=== PATIENT | male | born 1955 | race African-American/Black ===

== ENCOUNTER 2019-11-25 08:01 | Inpatient (IN) | payer MEDICAID, OTHER ==
[~2019-11-25] VITALS: Ht 154.5 cm; Wt 65.5 kg
[2019-11-25] MEDS ORDERED: SODIUM CHLORIDE 0.9% 1,000 ML IV ONE (08:10)
[2019-11-25] MEDS ORDERED: cloNIDine HCL 0.1 MG TAB PO ONE (08:30)
[2019-11-25 09:01] LABS: Basophils # (auto) 0 10 ^3/uL (0-0.2); Basophils % (auto) 0.2 % (0.0-2.0); Eosinophils # (auto) 0.3 10 ^3/uL (0-0.8); Eosinophils % (auto) 3.2 % (0.0-7.0); Hematocrit 38.2 % (41.0-53.0); Hemoglobin 12.4 g/dL (13.5-17.5); Lymphocytes # (auto) 1.1 10 ^3/uL (0.4-5.4); Lymphocytes % (auto) 12.4 % (10.0-50.0); Mean Corpuscular Hemoglobin 28.8 pg (28.0-32.0); Mean Corpuscular Hgb Conc. 32.3 g/dL (32.0-36.0); Mean Corpuscular Volume 89.2 fL (80.0-100.0); Monocytes # (auto) 1.4 10 ^3/uL (0-1.3); Neutrophils # (auto) 5.8 10 ^3/uL (1.6-8.6); Neutrophils % (auto) 68.2 % (37.0-80.0); Nucleated Red Blood Cells % 0.1 %; Platelet Count (auto) 269 10^3/uL (140-450); Red Blood Cells 4.28 10^6/uL (4.5-5.90); Red Cell Distribution Width 16.5 % (11.8-14.3); White Blood Cell 8.6 10^3/uL (4.4-10.8)
[2019-11-25 09:16] LABS: INR 1.02 (0.9-1.15)
[2019-11-25 09:23] LABS: Albumin 2.6 g/dL (3.4-5.0); Anion Gap 9 (5-15); Blood Urea Nitrogen 72 mg/dL (7-18); Calcium 8.7 mg/dL (8.5-10.1); Carbon Dioxide 33 mmol/L (21-32); Chloride 98 mmol/L (98-107); Glucose 140 mg/dL (74-106); Potassium 3.3 mmol/L (3.5-5.1); Sodium 140 mmol/L (136-145)
[2019-11-25 09:30] LABS: Alanine Aminotransferase 12 U/L (16-61); Alkaline Phosphatase 72 U/L (45-117); Aspartate Aminotransferase 17 U/L (15-37); BUN/Creatinine Ratio 53.7; Bilirubin, Total 0.8 mg/dL (0.2-1.0); GFR African American 68 mL/min; GFR Non-African American 57 mL/min; Total Protein 6.5 g/dL (6.4-8.2)
[2019-11-25] MEDS ORDERED: IPRATROPIUM BROM 0.5 MG/2.5ML INH SOL NEB PRN (11:15)
[2019-11-25] MEDS ORDERED: DEXTROSE (50%) 50ML SYRG IV PRN (11:15)
[2019-11-25] MEDS ORDERED: ACETAMINOPHEN 500 MG TAB PO PRN (11:15)
[2019-11-25] MEDS ORDERED: ALBUTEROL SULF 2.5 MG/0.5ML(0.5%) NEB SOLN NEB PRN (11:15)
[2019-11-25] MEDS ORDERED: MORPHINE SULF INJ 2 MG/ML SYRINGE 1ML IV ONE (11:15)
[2019-11-25] MEDS ORDERED: SOD CHL 0.9%/ KCL 20MEQ 1,000 ML IV ONE (11:15)
[2019-11-25] MEDS ORDERED: MORPHINE SULF INJ 2 MG/ML SYRINGE 1ML IV PRN (11:15)
[2019-11-25] MEDS ORDERED: NITROGLYCERIN 0.4 MG SL TAB SL PRN (11:15)
[2019-11-25 11:29] LABS: Urine Bacteria NONE SEEN /hpf (None Seen); Urine Blood Negative /uL (Negative); Urine Specific Gravity 1.014 (1.001-1.035); Urine Sperm PRESENT /hpf (None Seen); Urine WBC 1 /hpf (0 - 3)
[2019-11-25] MEDS ORDERED: LACTULOSE 20Gm/30ML SOLN PO PRN (11:30)
[2019-11-25] MEDS ORDERED: DOCUSATE SOD 100 MG CAP PO ONE (11:45)
[2019-11-25] MEDS ORDERED: CARVEDILOL 3.125 MG TAB PO ONE (11:45)
[2019-11-25] MEDS ORDERED: PANTOPRAZOLE 40 MG TAB PO ONE (11:45)
[2019-11-25 11:49] LABS: Cholesterol 98 mg/dL (< 200)
[2019-11-25 11:52] LABS: HDL Cholesterol 34 mg/dL (40-59); LDL Cholesterol 48 mg/dL (< 100); Triglycerides 129 mg/dL (< 150)
[2019-11-25] MEDS: InsuLIN REG 1unit/0.01ml Soln (100units/ml) SC SCH ×3 (11:52→21:58)
[2019-11-25] MEDS: ACCU-CHEK COMFORT CURVE STRIP VI SCH ×3 (11:52→21:51)
--- NOTE | 2019-11-25 12:28 | NUR ---
RECEIVED PATIENT TO THE FLOOR AWAKE ALERT AND ORIENTED. TWO SIDE RAILS UP AND CALL LIGHT IN REACH. NO SIGNS AND SYMPTOMS OF DISTRESS NOTED.
[2019-11-25 12:30] VITALS: BP 127/71
[2019-11-25] MEDS: MORPHINE SULF INJ 2 MG/ML SYRINGE 1ML IV PRN ×3 (14:45→23:07)
[2019-11-25] MEDS: ONDANSETRON HCL 4 MG/2 ML VIAL IV PRN ×3 (14:55→23:06)
--- NOTE | 2019-11-25 15:06 | NUR ---
Respiratory note: UNABLE TO DO BEDSIDE SPIROMETRY AT THIS TIME DUE TO MAINTENANCE. BEDSIDE SPIROMETRY IN BIOMED DEPARTMENT. CHUCKY BELTRE NOTIFIED.
[2019-11-25 17:00] VITALS: BP 119/68
--- NOTE | 2019-11-25 17:30 | NUR ---
CALLED PATIENTS CONTACT SISTER (JT) TO GET A LIST OF HOME MEDICATIONS. [phone] NO ANSWER LEFT MESSAGE. WILL UPDATE MED REC ONCE MEDICATION LIST IS RECEIVED.
[2019-11-25] MEDS: TAMSULOSIN HYDROCHLORIDE 0.4 MG CAP PO SCH (18:02)
[2019-11-25] MEDS ORDERED: FURO1TAB33 PO (18:45)
[2019-11-25] MEDS ORDERED: ASPI-404 PO (18:51)
[2019-11-25] MEDS ORDERED: DULO60CA PO (18:51)
[2019-11-25] MEDS ORDERED: HYDR-4798 PO (18:51)
[2019-11-25] MEDS ORDERED: TAMS0.4C36 PO (18:51)
[2019-11-25] MEDS ORDERED: ISOSTAB OR (18:51)
[2019-11-25] MEDS ORDERED: GLIP2.5T28 PO (18:51)
[2019-11-25] MEDS ORDERED: SENN1TAB14 PO (18:51)
[2019-11-25] MEDS ORDERED: ATOR40TA52 PO (18:51)
[2019-11-25] MEDS ORDERED: CARV6.2551 PO (18:51)
--- NOTE | 2019-11-25 19:30 | NUR ---
opening note pt resting in semi fowlers position with HOB at 30 degrees. respirations even and nonlabored on room. pt is bedrest, and has a procedure tomorrow. pt is NPO. vyas in place, patent and draining to gravity. POC discussed with pt.
[2019-11-25 22:00] VITALS: BP 132/67
[2019-11-25] MEDS: DOCUSATE SOD 100 MG CAP PO SCH (22:01)
[2019-11-25] MEDS: ATORVASTATIN 20 MG TAB PO SCH (22:01)
[2019-11-25] MEDS: CARVEDILOL 3.125 MG TAB PO SCH (22:02)
--- NOTE | 2019-11-25 23:01 | NUR ---
PAIN pt c/o left hip pain, 02/23. pt will be medicated appropriately.
--- NOTE | 2019-11-26 02:05 | NUR ---
Covid Swab Covid swab sent to lab. sample obtained from one nare only. pt refused collection of sample at other nare. the importance of sample collection was explained to patient. pt verbalized understanding, however refused collection from 2nd nare.
--- NOTE | 2019-11-26 03:20 | NUR ---
PAIN pt c/o left hip pain, 02/23. pt will be medicated appropriately.
--- NOTE | 2019-11-26 03:20 | NUR ---
pain pt c/o left hip pain, 01/23. will medicate appropriately. Addendum: 11/26/19 at 0444 by Sanford Riddle RN duplicate
[2019-11-26] MEDS: MORPHINE SULF INJ 2 MG/ML SYRINGE 1ML IV PRN ×4 (03:26→20:38)
--- NOTE | 2019-11-26 04:28 | NUR ---
pt requesting pain medication pt informed that it is not yet time for next pain medication administration. pt will be medicated at next appropriate administration time.
[2019-11-26 05:00] VITALS: BP 118/66
[2019-11-26 05:45] LABS: Basophils # (auto) 0 10 ^3/uL (0-0.2); Basophils % (auto) 0.2 % (0.0-2.0); Eosinophils # (auto) 0.3 10 ^3/uL (0-0.8); Eosinophils % (auto) 4.4 % (0.0-7.0); Hematocrit 35.5 % (41.0-53.0); Hemoglobin 11.3 g/dL (13.5-17.5); Lymphocytes # (auto) 0.9 10 ^3/uL (0.4-5.4); Lymphocytes % (auto) 13.1 % (10.0-50.0); Mean Corpuscular Hemoglobin 28.6 pg (28.0-32.0); Mean Corpuscular Hgb Conc. 31.8 g/dL (32.0-36.0); Mean Corpuscular Volume 90.1 fL (80.0-100.0); Monocytes # (auto) 1.1 10 ^3/uL (0-1.3); Monocytes % (auto) 16.4 % (0.0-12.0); Neutrophils # (auto) 4.6 10 ^3/uL (1.6-8.6); Neutrophils % (auto) 65.9 % (37.0-80.0); Platelet Count (auto) 193 10^3/uL (140-450); Red Blood Cells 3.94 10^6/uL (4.5-5.90); Red Cell Distribution Width 16.7 % (11.8-14.3); White Blood Cell 6.9 10^3/uL (4.4-10.8)
[2019-11-26 06:11] LABS: Potassium 3.1 mmol/L (3.5-5.1)
[2019-11-26] MEDS: ACCU-CHEK COMFORT CURVE STRIP VI SCH ×4 (06:13→21:58)
[2019-11-26] MEDS: InsuLIN REG 1unit/0.01ml Soln (100units/ml) SC SCH ×5 (06:13→21:58)
[2019-11-26 06:18] LABS: BUN/Creatinine Ratio 49.5; Calcium 8.4 mg/dL (8.5-10.1)
--- NOTE | 2019-11-26 07:29 | NUR ---
closing note pt resting in right lateral position. respirations even and nonlabored on room air. vyas catheter in place, patent, and draining to gravity. bed in low locked position, call light within reach.
[2019-11-26] MEDS: SOD CHL 0.9%/ KCL 40MEQ 1,000 ML IV SCH (07:45)
[2019-11-26 08:00] VITALS: BP 133/75
[2019-11-26 09:00] VITALS: BP 133/75
--- NOTE | 2019-11-26 09:00 | NUR ---
PT REFUSING BED CHANGE AND CHG WIPES . CHUCKY MAY WAS MADE AWARE .
[2019-11-26] MEDS: POTASSIUM CHL 20 Meq TABLET PO SCH ×2 (09:29→22:04)
[2019-11-26] MEDS: DOCUSATE SOD 100 MG CAP PO SCH ×2 (09:31→22:04)
[2019-11-26] MEDS: CARVEDILOL 3.125 MG TAB PO SCH ×2 (09:31→22:06)
[2019-11-26] MEDS: PANTOPRAZOLE 40 MG TAB PO SCH (09:31)
--- NOTE | 2019-11-26 09:45 | NUR ---
PT REFUSED BEDSIDE SPIROMETRY WITH BRONCHODILATOR. PT SAID HE DOES NOT WANT TO TAKE THE TEST. TO LEAVE HIM ALONE. CHUCKY STEVENSON MADE AWARE.
--- NOTE | 2019-11-26 09:48 | NUR ---
ASSESSED PT FOR PRN MED NEB, PT IS REFUSING ASSESSMENT NO DISTRESS NOTED. PT ON RA. WILL CONTINUE TO MONITOR PT.
[2019-11-26 10:40] VITALS: BP 128/68
[2019-11-26] MEDS ORDERED: CLINDAMYCIN 900MG IV 50 ML IV ONE (11:33)
[2019-11-26] MEDS ORDERED: BUPIVACAINE 0.25% INJ 50ML VIAL ONE (11:54)
[2019-11-26] MEDS ORDERED: SUCCINYLCHOLINE CHLORIDE 20 MG/ML 10ML VIAL IV ONE (11:58)
[2019-11-26] MEDS ORDERED: MIDAZOLAM HCL 1MG/1ML-2 ML VIAL ONE (12:00)
[2019-11-26] MEDS ORDERED: METOCLOPRAMIDE HCL 5MG/ml INJ 2ml VIAL ONE (12:01)
[2019-11-26] MEDS ORDERED: ETOMIDATE (2MG/ML) 20ML VIAL IV ONE (12:02)
[2019-11-26] MEDS ORDERED: LIDOCAINE 2% (LOCAL ANESTH.) PF 5ml SDV ONE (12:02)
[2019-11-26] MEDS ORDERED: ROCURONIUM 10MG/ML 10ML VIAL IV ONE (12:19)
[2019-11-26] MEDS ORDERED: SODIUM CHLORIDE LOCK 10 ML ONE (12:27)
[2019-11-26] MEDS ORDERED: ePHEDrine SULFATE 50 MG/ML AMP ONE (12:28)
[2019-11-26] MEDS ORDERED: NALOXONE HCL 0.4 MG/ML VIAL IV PRN (12:45)
[2019-11-26] MEDS ORDERED: ONDANSETRON HCL 4 MG/2 ML VIAL IV PRN (12:45)
[2019-11-26] MEDS ORDERED: HYDROmorphone HCL 2 MG/ML VL IV PRN ×2 (12:45)
[2019-11-26] MEDS ORDERED: ACCU-CHEK COMFORT CURVE STRIP VI ONE (12:45)
[2019-11-26] MEDS ORDERED: GLYCOPYRROLATE 0.2 MG/ML 1ML VIAL ONE (12:59)
[2019-11-26] MEDS ORDERED: NEOSTIGMINE 1 MG/ML INJ (10mg/10ML VIAL) ONE (12:59)
[2019-11-26] MEDS: LACTATED RINGER'S 1,000 ML IV SCH ×2 (13:04→23:04)
[2019-11-26] MEDS ORDERED: ACETAMINOPHEN 325 MG TAB PO PRN (13:15)
[2019-11-26] MEDS: SODIUM CHLOR 0.9% PF (SALINE LOCK) 10ML VIAL/SYR IV SCH (14:00)
[2019-11-26 17:00] VITALS: BP 106/66
[2019-11-26] MEDS: CLINDAMYCIN 600MG IV 50 ML IV SCH (17:39)
[2019-11-26] MEDS: TAMSULOSIN HYDROCHLORIDE 0.4 MG CAP PO SCH (17:39)
--- NOTE | 2019-11-26 19:15 | NUR ---
opening note pt A&O to person place and situation. respirations even and nonlabored on room air. dressing at left hip C/D/I. POC discussed with pt. bed alarm on. bed in low locked position, call light within reach.
--- NOTE | 2019-11-26 19:18 | NUR ---
Respiratory note: NO PRN TX GIVEN AT THIS TIME, NO SOB NOTED, NOT INDICATED. SPO2 97% ON RA, HR 95, RR 16. PT DENIES ANY NEEDS.
[2019-11-26] MEDS ORDERED: TEMAZEPAM 15 MG CAP PO PRN (20:45)
--- NOTE | 2019-11-26 21:00 | NUR ---
PT REFUSED LAB BLOOD DRAW. told lab techs to "get out, no!"
[2019-11-26 22:00] VITALS: BP 96/53
[2019-11-26] MEDS: ATORVASTATIN 20 MG TAB PO SCH (22:04)
[2019-11-26] MEDS: DULoxetine HCL 30 MG CAP PO SCH (22:05)
[2019-11-26] MEDS: NICOTINE 21MG/24 HR TOPICAL PATCH TD SCH (22:08)
[2019-11-27] MEDS: SODIUM CHLOR 0.9% PF (SALINE LOCK) 10ML VIAL/SYR IV SCH ×4 (00:15→22:50)
[2019-11-27] MEDS: CLINDAMYCIN 600MG IV 50 ML IV SCH ×2 (00:15→05:21)
--- NOTE | 2019-11-27 03:09 | NUR ---
pain c/o pain at left hip, 10/10. pt will be medicated appropriately.
[2019-11-27] MEDS: SOD CHL 0.9%/ KCL 40MEQ 1,000 ML IV SCH (03:23)
[2019-11-27] MEDS: MORPHINE SULF INJ 2 MG/ML SYRINGE 1ML IV PRN ×2 (03:23→09:00)
[2019-11-27 05:00] VITALS: BP 115/66
[2019-11-27 05:35] LABS: Basophils # (auto) 0 10 ^3/uL (0-0.2); Basophils % (auto) 0.3 % (0.0-2.0); Eosinophils # (auto) 0.2 10 ^3/uL (0-0.8); Eosinophils % (auto) 2.9 % (0.0-7.0); Hemoglobin 10.4 g/dL (13.5-17.5); Lymphocytes # (auto) 0.8 10 ^3/uL (0.4-5.4); Lymphocytes % (auto) 10.5 % (10.0-50.0); Mean Corpuscular Hemoglobin 28.8 pg (28.0-32.0); Mean Corpuscular Hgb Conc. 31.6 g/dL (32.0-36.0); Mean Corpuscular Volume 91.1 fL (80.0-100.0); Monocytes # (auto) 1.2 10 ^3/uL (0-1.3); Monocytes % (auto) 15.9 % (0.0-12.0); Neutrophils # (auto) 5.5 10 ^3/uL (1.6-8.6); Neutrophils % (auto) 70.4 % (37.0-80.0); Platelet Count (auto) 162 10^3/uL (140-450); Red Blood Cells 3.62 10^6/uL (4.5-5.90); Red Cell Distribution Width 16.5 % (11.8-14.3); White Blood Cell 7.8 10^3/uL (4.4-10.8)
[2019-11-27 05:47] LABS: Albumin 2.2 g/dL (3.4-5.0)
[2019-11-27 05:53] LABS: Bilirubin, Total 0.9 mg/dL (0.2-1.0); Total Protein 5.5 g/dL (6.4-8.2)
--- NOTE | 2019-11-27 06:10 | NUR ---
Respiratory note: PT ASSESSED FOR PRN MN TX. HR 98, RR 20, POX 97% ON RA, BREATH SOUNDS ARE CLEAR. NO SOB OR DISTRESS NOTED AT THIS TIME. PT WAS NOTIFY TO HAVE RT PAGE FOR MN TX.
[2019-11-27] MEDS: InsuLIN REG 1unit/0.01ml Soln (100units/ml) SC SCH ×4 (06:54→21:47)
[2019-11-27] MEDS: ACCU-CHEK COMFORT CURVE STRIP VI SCH ×4 (06:55→21:43)
--- NOTE | 2019-11-27 07:03 | NUR ---
closing note pt resting in semi fowlers. no s/s of pain or discomfort. vyas patent, and draining to gravity. bed in low locked position, call light within reach.
--- NOTE | 2019-11-27 07:25 | NUR ---
Opening Note Received report from production tester RN. Patient is awake, alert and oriented x3. No signs or symptoms of distress noted at this time. Patient is on room air, respirations even and unlabored. Patient repositioned for comfort. Dressing to left hip clean dry and intact. Reviewed plan of care with patient. Bed in low and locked position, call light within reach. Will continue to monitor Q1 hour and PRN.
[2019-11-27 09:00] VITALS: BP 107/67
[2019-11-27] MEDS: ENOXAPARIN SOD 40 MG/0.4 ML SYRINGE SC SCH (09:00)
[2019-11-27] MEDS: POTASSIUM CHL 20 Meq TABLET PO SCH ×2 (09:01→21:49)
[2019-11-27] MEDS: PANTOPRAZOLE 40 MG TAB PO SCH (09:01)
[2019-11-27] MEDS: DULoxetine HCL 30 MG CAP PO SCH (09:01)
[2019-11-27] MEDS: NICOTINE 21MG/24 HR TOPICAL PATCH TD SCH (09:01)
[2019-11-27] MEDS: DOCUSATE SOD 100 MG CAP PO SCH ×2 (09:01→21:49)
[2019-11-27] MEDS: LACTATED RINGER'S 1,000 ML IV SCH ×2 (09:04→19:04)
--- NOTE | 2019-11-27 09:15 | NUR ---
Pain Patient complains of pain 8/10 to left hip. Will medicate per orders. Will continue to monitor Q1 hour and PRN.
[2019-11-27] MEDS: FUROSEMIDE 20 MG TAB PO SCH (10:00)
[2019-11-27] MEDS: CARVEDILOL 3.125 MG TAB PO SCH ×2 (10:00→21:50)
--- NOTE | 2019-11-27 10:50 | NUR ---
Patient refusing PT Patient refusing to get out of bed at this time. PT states she will attempt again later. Will continue to monitor Q1 hour and PRN.
[2019-11-27 13:00] VITALS: BP 143/80
--- NOTE | 2019-11-27 13:37 | NUR ---
Patient refusing to reposition Patient states "leave me alone" Educted patient on importance of being repositioned. Patients is agitated and continues to refuse. Bed in low and locked position, call light within reach. Will continue to monitor Q1 hour and PRN.
--- NOTE | 2019-11-27 14:08 | NUR ---
Dr. Carlitos Kirby at bedside Discussing plan of care with patient and this RN. Will continue to monitor Q1 hour and PRN.
--- NOTE | 2019-11-27 14:53 | NUR ---
Refused PT again PT at bedside attempting to work with patient. Patient refused again, telling PT and this RN to leave the room. Will continue to monitor Q1 hour and PRN.
--- NOTE | 2019-11-27 15:59 | NUR ---
Pagediogenes Reza Pagediogenes Reza per Dr. Carlitos Kirby requesting clearance for discharge. Awaiting call back.
--- NOTE | 2019-11-27 16:01 | NUR ---
Spoke to patient sister Per sister Kimberly , she wants patient to discharge home not to SNF. Patient also refusing SNF at this time. Will notify Narda MUELLER from psych social worker aware. Will continue to monitor Q1 hour and PRN.
--- NOTE | 2019-11-27 16:15 | NUR ---
Call back from Dr. Juaquin Reza states patient is ok to discharge from his standpoint. Patient to follow up with Dr. Reza in 2 weeks in the [facility].
--- NOTE | 2019-11-27 16:44 | NUR ---
Assessment Patient is a 64-year-old male who is alert and oriented. Prior to admission patient lived home with his sister Kimberly and functioned independently. Patient informed me he can care for his own ADLs. Patient informed me he has a walker and cane for home use. Patient informed me he has good family support. Informed patient there is a social service consult for home health safety evaluation, physical therapy vs SNF. Per patient he will return home to his prior living arrangements post discharge and family will transport him home. Patient informed me he would like home health. Contact patient sister Kimberly ) regarding discharge plan. Per sister Kimberly she wants patient to discharge home not to SNF. Informed patient and sister Kimberly clinical information will be faxed to contracted facility with health plan. Informed patient and sister Kimberly they both have the right to participate in all discharge planning. Patient and Kimberly verbalized understanding and agreed to discharge plan. Physical therapy evaluation per therapy recommendation. Per Physical Therapy Cheryle states patient refused evaluation twice so no recommendation could be made. Notify Dr. Moqattash. Urbina of the above he stated that he wants patient to go to SNF and if he refused he would want patient to sign AMA. Advised provider that is going against patient rights to choose and participate in his own d/c plan. Informed CHUCKY Young. Faxed [facility] to [facility] patient has been accepted and service to start within 24-48hrs upon d/c day. faxed clinical information to [facility] requesting authorization for home health. Per Melony with [facility] home health will be approved. Addendum: 11/27/19 at 1648 by TOVA NICHOLS Amended: Links added.
[2019-11-27 16:55] VITALS: BP 122/73
[2019-11-27] MEDS: TAMSULOSIN HYDROCHLORIDE 0.4 MG CAP PO SCH (18:00)
[2019-11-27] MEDS: HYDROcodone-ACET 5/325MG TAB PO PRN (18:49)
--- NOTE | 2019-11-27 19:05 | NUR ---
Closing Note Report given to shift supervisor film processing RN. No signs or symptoms of distress noted at this time.
--- NOTE | 2019-11-27 19:20 | NUR ---
opening note pt in left lateral position. respirations even and nonlabored on room air. dressing to left hip c/d/i. pt is asking for pain medication, and was advised that pain medication is not available at this time. Pain medication will be administered at the appropriate time. bed is in low locked position, call light within reach.
--- NOTE | 2019-11-27 21:20 | NUR ---
Respiratory note: PT ASSESSED FOR PRN MED NEB TX. HR 96, RR 18, SPO2 96% ON 2L NC. NO S/S OF ANY DISTRESS NOTED. ADVISED PT TO CALL IF TX IS NEEDED.
[2019-11-27] MEDS: ATORVASTATIN 20 MG TAB PO SCH (21:49)
[2019-11-27 22:15] VITALS: BP 110/58
--- NOTE | 2019-11-28 00:22 | NUR ---
pain pt c/o pain at left hip site. pt will be medicated according to orders provided.
[2019-11-28] MEDS: MORPHINE SULF INJ 2 MG/ML SYRINGE 1ML IV PRN (00:29)
[2019-11-28] MEDS: SOD CHL 0.9%/ KCL 40MEQ 1,000 ML IV SCH (00:51)
[2019-11-28] MEDS: LACTATED RINGER'S 1,000 ML IV SCH ×2 (05:12→15:04)
[2019-11-28 05:59] VITALS: BP 110/62
[2019-11-28] MEDS: ACCU-CHEK COMFORT CURVE STRIP VI SCH ×3 (06:13→17:00)
[2019-11-28] MEDS: InsuLIN REG 1unit/0.01ml Soln (100units/ml) SC SCH ×3 (06:14→17:00)
[2019-11-28] MEDS: SODIUM CHLOR 0.9% PF (SALINE LOCK) 10ML VIAL/SYR IV SCH ×2 (06:29→13:49)
[2019-11-28 06:33] LABS: Basophils # (auto) 0 10 ^3/uL (0-0.2); Basophils % (auto) 0.1 % (0.0-2.0); Eosinophils # (auto) 0.3 10 ^3/uL (0-0.8); Hematocrit 27.9 % (41.0-53.0); Hemoglobin 9.2 g/dL (13.5-17.5); Lymphocytes # (auto) 0.8 10 ^3/uL (0.4-5.4); Lymphocytes % (auto) 9.7 % (10.0-50.0); Mean Corpuscular Hgb Conc. 33.1 g/dL (32.0-36.0); Mean Corpuscular Volume 90.6 fL (80.0-100.0); Monocytes # (auto) 1.4 10 ^3/uL (0-1.3); Monocytes % (auto) 16.4 % (0.0-12.0); Neutrophils # (auto) 5.9 10 ^3/uL (1.6-8.6); Neutrophils % (auto) 70.8 % (37.0-80.0); Platelet Count (auto) 143 10^3/uL (140-450); Red Blood Cells 3.08 10^6/uL (4.5-5.90); Red Cell Distribution Width 16.6 % (11.8-14.3); White Blood Cell 8.3 10^3/uL (4.4-10.8)
[2019-11-28 06:51] LABS: BUN/Creatinine Ratio 32.1; Calcium 7.9 mg/dL (8.5-10.1); Potassium 5.2 mmol/L (3.5-5.1)
--- NOTE | 2019-11-28 07:10 | NUR ---
closing note pt resting in semi fowlers. pt is sleeping, and does not show s/s of pain or discomfort. bed in low locked position, call light within reach. endorsed care to day shift RN Summer.
--- NOTE | 2019-11-28 07:40 | NUR ---
Opening Note Received report from overnight babysitter RN. Patient is resting in bed, no signs or symptoms of distress noted at this time.Patient is on room air, respirations even and unlabored. Dressing to left hip clean dry and intact. Reviewed plan of care with patient. Bed in low and locked position, call light within reach. Will continue to monitor Q1 hour and PRN.
[2019-11-28 09:00] VITALS: BP 115/67
--- NOTE | 2019-11-28 09:54 | NUR ---
D/C planning Obtain authorization from [facility] for [facility] [id number].
[2019-11-28] MEDS: CARVEDILOL 3.125 MG TAB PO SCH (10:00)
[2019-11-28] MEDS: DOCUSATE SOD 100 MG CAP PO SCH (10:46)
[2019-11-28] MEDS: NICOTINE 21MG/24 HR TOPICAL PATCH TD SCH (10:46)
[2019-11-28] MEDS: ENOXAPARIN SOD 40 MG/0.4 ML SYRINGE SC SCH (10:46)
[2019-11-28] MEDS: POTASSIUM CHL 20 Meq TABLET PO SCH (10:46)
[2019-11-28] MEDS: FUROSEMIDE 20 MG TAB PO SCH (10:46)
[2019-11-28] MEDS: DULoxetine HCL 30 MG CAP PO SCH (10:46)
[2019-11-28] MEDS: PANTOPRAZOLE 40 MG TAB PO SCH (10:53)
--- NOTE | 2019-11-28 11:08 | NUR ---
Respiratory note: PT ASSESSED FOR PRN MED NEB TX. HR 89, RR 16, SPO2 99% ON ROOM AIR,BS ARE CLEAR AND DIMINISHED T/O.NO INDICATION FOR TX AT THIS TIME. NO S/S OF ANY DISTRESS NOTED. ADVISED PT TO CALL IF TX IS NEEDED.
[2019-11-28 13:00] VITALS: BP 109/64
[2019-11-28] MEDS: HYDROcodone-ACET 5/325MG TAB PO PRN (13:28)
--- NOTE | 2019-11-28 13:28 | NUR ---
Pain Patient complains of pain to left hip /. will medicate per orders. Will continue to monitor Q1 hour and PRN.
--- NOTE | 2019-11-28 15:29 | NUR ---
Spoke to Dr. Reza states it is ok for patient to go home with home health. Will update Dr. Nuzhat Kirby
--- NOTE | 2019-11-28 15:34 | NUR ---
Est energy needs 2144-8437 kcal (25-30 kcal/kg BW) Est protein needs 52-66g (0.8-1g/kg BW). Will reassess prn Addendum: 11/28/19 at [address] Amended: Links added.
[2019-11-28 16:40] VITALS: BP 125/63
--- NOTE | 2019-11-28 16:46 | NUR ---
D/ C Planning Per consult for home health physical therapy and safety evaluation. order was completed on 11/27/2019. Per sister Kimberly she would like transportation to be arranged. Faxed transportation form requesting for a 18:00 via [employer]. Per Carol with [facility] transportation has been arranged with [employer] [facility]:( [phone]) with a 18:00 sandblasting supervisor time. Informed RN Summer.
[2019-11-28 16:59] VITALS: BP 115/67
--- NOTE | 2019-11-28 17:40 | NUR ---
Caraballo catheter removed Patient instructed to call for assistance. Patient provided with urinal.
[2019-11-28] MEDS: TAMSULOSIN HYDROCHLORIDE 0.4 MG CAP PO SCH (18:00)
--- NOTE | 2019-11-28 18:41 | NUR ---
night monitor removed and sent back to ICU
--- NOTE | 2019-11-28 18:53 | NUR ---
Discharge Discharge instructions given as ordered. Encourage to follow up with PMD as instructed. All questions and concerns addressed. Patient verbalized understanding. Medication reconciliation form completed and copy given to patient. IV removed with catheter intact, pressure dressing applied. Patient transported via [employer] with [employer]. Patient sister Kimberly down in [facility]. Updated on plan and verbalized understanding. No signs or symptoms of distress noted at this time.
[2019-12-05] MEDS ORDERED: DOCU-94 PO (13:01)
== END 2019-11-28 18:55 | disposition home health service (06) | DRG 308 ==
LOC: ER 08:01 → EDBD 08:01 → TELE-WESTW 08:02
PROVIDERS: ADMIT Nurse Practitioner Acute Care; ATTEND Internal Medicine
PROC: 8E0Y3EZ Fluorescence Guided Procedure of Lower Extremity, Percutaneous Approach (ICD-10-PCS; 2019-11-26)
PROC: 0QS734Z Reposition Left Upper Femur with Internal Fixation Device, Percutaneous Approach (ICD-10-PCS; principal; 2019-11-26 11:58)
DX: S72.142A Displaced intertrochanteric fracture of left femur, initial encounter for closed fracture (principal); E11.22 Type 2 diabetes mellitus with diabetic chronic kidney disease; E44.0 Moderate protein-calorie malnutrition; I13.0 Hypertensive heart and chronic kidney disease with heart failure and stage 1 through stage 4 chronic kidney disease, or unspecified chronic kidney disease; E66.01 Morbid (severe) obesity due to excess calories; I50.22 Chronic systolic (congestive) heart failure; N18.3 Chronic kidney disease, stage 3 (moderate); W18.30XA Fall on same level, unspecified, initial encounter; E87.6 Hypokalemia; D64.9 Anemia, unspecified; F32.9 Major depressive disorder, single episode, unspecified; E78.5 Hyperlipidemia, unspecified; F17.200 Nicotine dependence, unspecified, uncomplicated; G89.29 Other chronic pain; J44.1 Chronic obstructive pulmonary disease with (acute) exacerbation; N40.0 Benign prostatic hyperplasia without lower urinary tract symptoms; Z79.84 Long term (current) use of oral hypoglycemic drugs; Z88.0 Allergy status to penicillin; Z79.899 Other long term (current) drug therapy; Z79.82 Long term (current) use of aspirin; Z68.28 Body mass index [BMI] 28.0-28.9, adult; Z11.59 Encounter for screening for other viral diseases
CPT/HCPCS: 36415; 71045; 72192; 73502; 76000; 80048; 80053; 80061; 81001; 82962; 83036; 83880; 84484; 85025; 85610; 85730; 86850; 86900; 86901; 93005; 93306; 96361; 96374; 96375; 97163; A4565; C1713; G0378; J0330; J1815; J2001; J2250; J2405; J3490

== ENCOUNTER 2020-12-13 16:20 | Emergency (ER) | payer MEDICAID ==
[~2020-12-13] VITALS: Ht 152.4 cm; Wt 72.6 kg
[~2020-12-13 16:20] MED LIST: ASPI-543 PO; ATOR40TA52 PO; CARV6.2551 PO; DOCU-94 PO; DULO60CA PO; FURO1TAB33 PO; GLIP2.5T28 PO; HYDR-4798 PO; ISOSTAB OR; SENN1TAB14 PO; TAMS0.4C36 PO
[2020-12-13 16:51] LABS: Basophils # (auto) 0.1 10 ^3/uL (0-0.2); Eosinophils # (auto) 0.5 10 ^3/uL (0-0.8); Eosinophils % (auto) 6.8 % (0.0-7.0); Hematocrit 40.1 % (41.0-53.0); Hemoglobin 13.3 g/dL (13.5-17.5); Lymphocytes # (auto) 1.8 10 ^3/uL (0.4-5.4); Lymphocytes % (auto) 24.9 % (10.0-50.0); Mean Corpuscular Hemoglobin 28.8 pg (28.0-32.0); Mean Corpuscular Hgb Conc. 33.1 g/dL (32.0-36.0); Mean Corpuscular Volume 87.2 fL (80.0-100.0); Monocytes # (auto) 0.6 10 ^3/uL (0-1.3); Monocytes % (auto) 8.3 % (0.0-12.0); Neutrophils # (auto) 4.4 10 ^3/uL (1.6-8.6); Platelet Count (auto) 136 10^3/uL (140-450); Red Blood Cells 4.61 10^6/uL (4.5-5.90); Red Cell Distribution Width 16.1 % (11.8-14.3); White Blood Cell 7.4 10^3/uL (4.4-10.8)
[2020-12-13 17:13] LABS: Albumin 3.7 g/dL (3.4-5.0); Anion Gap 7 (5-15); Blood Urea Nitrogen 40 mg/dL (7-18); Calcium 9.1 mg/dL (8.5-10.1); Carbon Dioxide 27 mmol/L (21-32); Chloride 104 mmol/L (98-107); Glucose 153 mg/dL (74-106); INR 1.04 (0.9-1.15); Partial Thromboplastin Time 27.1 sec (23.0-31.2); Potassium 4.4 mmol/L (3.5-5.1); Sodium 138 mmol/L (136-145)
[2020-12-13 17:19] LABS: Alanine Aminotransferase 24 U/L (16-61); Alkaline Phosphatase 112 U/L (45-117); Aspartate Aminotransferase 15 U/L (15-37); Bilirubin, Total 0.6 mg/dL (0.2-1.0); GFR African American 48 mL/min; GFR Non-African American 40 mL/min; Total Protein 7.9 g/dL (6.4-8.2)
[2020-12-13 18:53] VITALS: BP 143/78
== END 2020-12-13 19:18 | disposition home or self-care (01) ==
LOC: ER 16:20
DX: I10 Essential (primary) hypertension (principal); E11.9 Type 2 diabetes mellitus without complications; E78.5 Hyperlipidemia, unspecified
CPT/HCPCS: 36415; 71045; 80053; 83605; 84484; 85025; 85610; 85730; 93005